=== PATIENT | female | born 1985 | race Two or more races ===

== ENCOUNTER 2022-12-06 10:40 | Emergency (ER) | payer OTHER ==
[~2022-12-06] VITALS: Ht 144.8 cm; Wt 59.0 kg
[2022-12-06] MEDS ORDERED: MOME17SP BNOSTRILS (10:58)
--- NOTE | 2022-12-06 11:00 | NUR ---
SHORTNESS OF BREATH AFTER INHALING DUST FROM CONSTRUCTION AT WORK SPEAKING FULL SENTENCES WITHOUT DIFFICULTY. AMBULATORY, AAOX4, BREATHING EVEN AND UNLABORED SATURATING AT 97%RA. AT BEDSIDE FOR PINO.
--- NOTE | 2022-12-06 11:26 | NUR ---
Patient discharged to home in stable condition. Written and verbal after care instructions given. Patient verbalizes understanding of instruction.
[2022-12-06 11:30] VITALS: BP 125/75
== END 2022-12-06 11:26 | disposition home or self-care (01) ==
LOC: ER 10:46
DX: J32.9 Chronic sinusitis, unspecified (principal); Z79.899 Other long term (current) drug therapy; Z88.0 Allergy status to penicillin

== ENCOUNTER 2023-02-15 17:51 | Emergency (ER) | payer OTHER ==
[~2023-02-15] VITALS: Ht 142.2 cm; Wt 59.0 kg
[~2023-02-15 17:51] MED LIST: MOME17SP BNOSTRILS
--- NOTE | 2023-02-15 18:33 | NUR ---
BIBS FOR C/O RIGHT ARM NUMBNESS SINCE YESTERDAY. WILL CONTINUE TO MONITOR THE PATIENT.
[2023-02-15] MEDS ORDERED: KETOROLAC TROMETHAMINE INJ 60 MG/2 ML VIAL IM ONE (20:00)
[2023-02-15] MEDS ORDERED: KETOROLAC TROMETHAMINE INJ 30 MG/ML VIAL ONE ×2 (20:17→20:21)
[2023-02-15] MEDS ORDERED: LIDO30AD10 TP ×2 (20:56→22:21)
--- NOTE | 2023-02-15 21:19 | NUR ---
Patient discharged to home in stable condition. Written and verbal after care instructions given. Patient verbalizes understanding of instruction.
[2023-02-15 22:53] VITALS: BP 118/75
== END 2023-02-15 22:53 | disposition home or self-care (01) ==
LOC: ER 17:53
DX: M54.12 Radiculopathy, cervical region (principal); Z79.899 Other long term (current) drug therapy; Z88.0 Allergy status to penicillin
CPT/HCPCS: 99285; 72125; 96372; J1885; J7030